=== PATIENT | female | born 1940 | race Caucasian/White ===

== ENCOUNTER 2022-05-23 09:51 | Observation (INO) ==
[2022-05-23] MEDS ORDERED: IOPAMIDOL 100 ML BOTTLE IV ONE (09:52)
--- NOTE | 2022-05-23 10:04 | Emergency Department Note ---
HPI General Chief complaint: Stroke Symptoms Stated complaint: Stroke Symptoms Time Seen by Provider: 05/23/22 10:01 Source: patient and family Mode of arrival: wheelchair Limitations: no limitations History of Present Illness HPI Narrative: 81-year-old female with past medical history of diabetes, hypertension, CKD, and anemia presenting with speech difficulty. Patient's last known normal was 9:15 AM. Daughter left her for a few minutes and when she came back noted that the patient was having trouble speaking clearly and was not making sense when she was trying to talk. Daughter brought her to the emergency department and in triage the patient was noted to have difficulty formulating sentences. By the time she was placed in a room patient was able to answer all questions and speak normally. She denies any headache, vision changes, chest pain, shortness of breath, or nausea. No numbness or weakness in her arms or legs. No prior history of CVA. Not on anticoagulation. No other complaints at this time. Related Data Home Medications Medication Instructions Recorded Confirmed ascorbate calcium (vitamin C) 500 1 g PO Q6H 05/26/20 02/19/22 mg tablet brimonidine 0.1 % eye drops 1 drp ophthalmic (eye) Q8H 05/26/20 02/19/22 (Alphagan P) dorzolamide 22.3 mg-timolol 6.8 1 drp ophthalmic (eye) BID 05/26/20 02/19/22 mg/mL eye drops (Cosopt) evening primrose oil 500 mg capsule 500 mg PO TID 05/26/20 02/19/22 flaxseed oil 1,000 mg capsule 1,000 mg PO QDAY 05/26/20 02/19/22 hydrochlorothiazide 12.5 mg capsule 12.5 mg PO QDAY 05/26/20 02/19/22 latanoprost 0.005 % eye drops 1 drp ophthalmic (eye) QDAY 05/26/20 02/19/22 (Xalatan) losartan 100 mg tablet 100 mg PO QDAY 05/26/20 02/19/22 multivitamin 1 cap PO QDAY 05/26/20 02/19/22 pravastatin 20 mg tablet 20 mg PO QDAY 11/13/21 02/19/22 Allergies Allergy/AdvReac Type Severity Reaction Status Date / Time codeine Allergy Unknown HALLUCINATI Verified 02/19/22 14:17 ONS NSAIDS (Non-Steroidal Allergy Unknown KIDNEY Verified 02/19/22 14:17 Anti-Inflamma FUNCTION Kbkhlon-IOS-FhY Reductase Allergy Unknown MUSCLE PAIN Verified 02/19/22 14:17 Inhibitor [Ntrtqwv-Hju-Xmm Reductase Inhibitor] Review of Systems ROS ROS Narrative: Narrative: Constitutional: Denies fever Eyes: Denies vision change ENT ED: Denies throat pain Cardiovascular: Denies chest pain Respiratory: Denies shortness of breath or cough Gastrointestinal: Denies abdominal pain, nausea or vomiting Genitourinary: Denies dysuria or hematuria Musculoskeletal: Denies back pain Integumentary: Denies rash Neurological: Denies headache, weakness, numbness, paresthesias or dizziness Psychiatric: Denies anxiety Endocrine: Denies fatigue Hematological/Lymphatic: Denies easy bruising PFSH Narrative Patient History Narrative: Narrative: Medical/Surgical/Family History All Active Problems (Updated 05/23/22 @ 12:21 by Luis Angel Gannon MD) Radiculopathy, sacral and sacrococcygeal region (Chronic) Radiculopathy, lumbosacral region (Chronic) Chronic pain (Chronic) Glaucoma (Chronic) Hypertension (Chronic) Low back pain (Chronic) Radiculopathy of lumbar region (Chronic) UPJ (ureteropelvic junction) obstruction (Chronic) Anemia in chronic kidney disease (Chronic) Type 2 diabetes mellitus without complications (Chronic) Vitamin D deficiency, unspecified (Chronic) Hyperlipidemia (Chronic) Impacted cerumen, bilateral (Chronic) Tinnitus, bilateral (Chronic) Rheumatic tricuspid insufficiency (Chronic) Nonrheumatic aortic (valve) insufficiency (Chronic) Endocarditis (Chronic) Asymptomatic varicose veins of unspecified lower extremity (Chronic) Spinal enthesopathy, lumbosacral region (Chronic) Other spondylosis, lumbar region (Chronic) Other enthesopathies, not elsewhere classified (Chronic) Chronic kidney disease, stage 3 (Chronic) Renal osteodystrophy (Chronic) Overactive bladder (Chronic) Mixed incontinence (Chronic) Other specified disorders of breast (Chronic) 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) Hypertensive chronic kidney disease with stage 1 through stage 4 chronic kidney disease, or unspecified chronic kidney disease (Chronic) Pure hypercholesterolemia, unspecified (Chronic) Primary open-angle glaucoma, bilateral, stage unspecified (Chronic) Mixed conductive and sensorineural hearing loss, unilateral, right ear with restricted hearing on the contralateral side (Chronic) Hydronephrosis, left (Acute) Obstruction of left ureteropelvic junction (UPJ) (Acute) TIA (transient ischemic attack) (Acute) Medical History Anemia in chronic kidney disease Asymptomatic varicose veins of unspecified lower extremity Chronic kidney disease, stage 3 Chronic pain Degeneration of lumbar or lumbosacral intervertebral disc Endocarditis Glaucoma Hyperlipidemia Hypertension Hypertensive chronic kidney disease with stage 1 through stage 4 chronic kidney disease, or unspecified chronic kidney disease Impacted cerumen, bilateral Low back pain Mixed conductive and sensorineural hearing loss, unilateral, right ear with restricted hearing on the contralateral side Mixed incontinence Nonrheumatic aortic (valve) insufficiency Nonrheumatic mitral (valve) insufficiency Other enthesopathies, not elsewhere classified Other specified disorders of breast Other spondylosis, lumbar region Overactive bladder Primary open-angle glaucoma, bilateral, stage unspecified Pure hypercholesterolemia, unspecified Radiculopathy of lumbar region Radiculopathy, lumbosacral region Radiculopathy, sacral and sacrococcygeal region Renal osteodystrophy Rheumatic tricuspid insufficiency Spinal enthesopathy, lumbosacral region Tinnitus, bilateral Type 2 diabetes mellitus without complications UPJ (ureteropelvic junction) obstruction Vitamin D deficiency, unspecified Surgical History History of appendectomy (~1946) History of arthroscopy of right knee (~1988) History of bilateral cataract extraction (~1999) History of cardiac cath 1989, 2002, 2004 History of carpal tunnel surgery of right wrist (~2005) History of cholecystectomy (~1976) History of fusion of cervical spine (~1964) History of hysterectomy (~1980) History of incisional hernia repair (~1981) History of pubovaginal sling (~2001) History of right knee surgery (~2018) History of stapedectomy 1974 right ear History of surgery TF NURIA #2 Lt L5-S1 w/o sed 05/23/20 LESI #1 L5-S1 w/o sed 03/15/20 LESI #1 Lt. L5-S1 w/o sed 08/18/2019 TF NURIA #2 Lt S1 w/o sed 10/13/2018 TF NURIA #1 Lt S1 w/o sed 09/03/18 TF NURIA #2 Left S1 w/o sed 06/03/2017 TF NURIA #1 Lt L5-S1 w/o sed 05/15/2017 History of surgery 2001 TVT transvaginal tape; 2004 sling and debridement of left pelvis History of tonsillectomy and adenoidectomy (~1948) History of vein stripping (~1999) Family History Father , 83 Natural with unknown cause Mother , 39 No problems noted. Brother Colon cancer Social History Smoking Status: Never smoker Alcohol Intake Frequency: does not drink Substance Use: does not use Exam Narrative Narrative: Narrative: General Limitations: no limitations General appearance: Present alert and in no apparent distress Head Head: Present atraumatic and normocephalic Eye Eye: Present normal appearance, PERRL, EOMI and visual meléndez intact; Absent scleral icterus, conjunctival injection or nystagmus ENT ENT: Present mucous membranes moist Neck Neck: Present trachea midline Chest Chest: Present symmetric chest wall rise Respiratory Respiratory: Present normal lung sounds bilaterally; Absent respiratory distress, rales/crackles, wheezes, stridor or accessory muscle use Cardiovascular Cardiovascular: Present regular rate and normal rhythm; Absent systolic murmur or diastolic murmur Adbominal Abdominal: Present soft; Absent distention, tenderness, guarding, rebound or rigidity Extremities Extremities: Present normal inspection; Absent pretibial edema Back Back: Present normal inspection; Absent CVA tenderness (R) or CVA tenderness (L) Neurological Neurological: Present alert, oriented X3 and CN II-XII intact; Absent motor sensory deficit Expanded Neurological Patient oriented to: Present person, place and time Speech: Present fluid speech; Absent expressive aphasia or dysarthria CRANIAL NERVES: EOM function (II, III, IV, ): Normal, facial sensation (V): Normal, facial palsy (VII): Normal, gag reflex (IX): Normal, spinal accessory function (XI): Normal and tongue deviation (XII): Normal CEREBELLAR FUNCTION: finger to nose: Normal Motor strength - LUE: 5/5 Motor strength - RUE: 5/5 Motor strength - LLE: 5/5 Motor strength - RLE: 5/5 UPPER MOTOR NEURON EXAM: danielle neglect: Normal SENSORY EXAM UPPER EXTREMITY: Normal: light touch SENSORY EXAM LOWER EXTREMITY: Normal: light touch Coma Scale Eye Opening: Spontaneous Coma Scale Motor Response: Obeys Commands Coma Scale Verbal Response: Oriented Coma Scale Total: 15 Psychiatric Psychiatric: Present normal affect and normal mood Skin Skin: Present warm (WNL) and dry Course Consultations Consultation #1: Dr. Kaplan, hospitalist Time: 12:18 Vital Signs Vital signs: Vital Signs Temperature 97.0 F 05/23/22 09:53 Pulse Rate 105 H 05/23/22 09:53 Respiratory Rate 18 05/23/22 09:53 Blood Pressure 132/91 05/23/22 09:53 Pulse Oximetry (%) 97 05/23/22 09:53 Oxygen Delivery Method 05/23/22 09:53 Temperature 97.0 F 05/23/22 09:53 Pulse Rate 68 05/23/22 11:56 Respiratory Rate 17 05/23/22 11:56 Blood Pressure 131/71 05/23/22 11:56 Pulse Oximetry (%) 100 05/23/22 11:56 Oxygen Delivery Method 05/23/22 09:53 MDM MDM Narrative Medical decision making narrative: 81-year-old female presenting with speech difficulty. On arrival, code stroke was initiated. Vital signs are stable. On my assessment of the patient her symptoms have completely resolved. She has no neurologic deficits on exam and no speech difficulty. NIH stroke scale is 0. CT brain without contrast shows no acute hemorrhage or evidence of acute infarct, per Dr. Alfaro of radiology. EKG shows atrial fibrillation which patient does not appear to have had prev iously. I spoke with Dr. Quiros of telestroke neurology who does not recommend tPA administration which I agree with. He states the patient will likely need admission, aspirin, statin, and MRI. Aspirin 325mg ordered. Labs and CTAs are pending. Labs notable for mild hyponatremia to 130 and creatinine of 1.2. CTA head and neck showed no significant stenosis. Will admit for TIA, patient endorsed to Dr. Kaplan for admission. Lab Data Lab results reviewed: Yes I reviewed the patient's lab results. Result diagrams: 05/23/22 10:00 05/23/22 10:00 Labs: Lab Results 05/23/22 05/23/22 05/23/22 Range/Units 10:00 10:00 10:00 WBC 8.6 (4.5-11.0) K/mcL RBC 3.90 (3.59-5.38) M/mcL Hgb 11.9 (11.2-15.7) g/dL Hct 35.7 (34.1-44.9) % POC Hct (36-48) MCV 91.5 (80.0-100.0) fL MCH 30.5 (26.0-34.0) pg MCHC 33.3 (31.0-36.0) g/dL RDW 13.0 (11.5-14.5) % Plt Count 269 (140-440) K/mcL MPV 9.3 (7.4-10.4) fL Immature Gran % (Auto) 0.3 (0.0-0.5) % Neut % (Auto) 68.5 (38.0-78.0) % Lymph % (Auto) 22.9 (15.5-49.0) % Hart % (Auto) 6.9 (1.0-12.0) % Eos % (Auto) 0.9 (0.0-7.0) % Baso % (Auto) 0.5 (0.0-2.0) % Lymph # (Auto) 1.98 (1.50-4.80) K/mcL Hart # (Auto) 0.60 (0.10-0.90) K/mcL Eos # (Auto) 0.08 (0.00-0.70) K/mcL Baso # (Auto) 0.04 (0.00-0.30) K/mcL Immature Gran # 0.03 (0.00-0.05) K/mcl Absolute Neutrophils 5.94 (1.80-8.00) K/mcL POC PT (11.9-14.5) PT 13.9 (11.9-14.5) sec POC INR (0.8-1.2) INR 1.0 (0.9-1.1) APTT 31.8 (20.0-37.0) sec POC Sodium (133-145) Sodium 130 L (133-145) mmol/L POC Potassium (3.3-5.1) Potassium 4.2 (3.3-5.1) mmol/L POC Chloride (96-108) Chloride 98 (96-108) mmol/L Carbon Dioxide 17 L (22-30) mmol/L POC Total CO2 (22-30) Anion Gap 15.0 (8.0-16.0) POC BUN (6-20) BUN 25 H (8-23) mg/dL Creatinine 1.2 H (0.6-1.1) mg/dL POC Creatinine (0.6-1.2) GFR Calculation 42 Glucose 109 H (70-105) mg/dL POC Glucose (70-105) Calcium 9.4 (8.6-10.4) mg/dL POC WB Ioniz Calcium (1.16-1.32) Total Bilirubin 0.6 (0.1-1.0) mg/dL AST 24 (<32) U/L ALT 15 (<40) U/L Alkaline Phosphatase 82 (39-117) U/L Troponin T (<0.03) ng/mL Total Protein 6.7 (5.9-8.4) gm/dL Albumin 4.1 (3.2-5.2) gm/dL Globulin 2.6 (2.2-3.7) gm/dL Albumin/Globulin Ratio 1.6 (1.0-2.3) Urine Color Urine Appearance (Clear) Urine pH (5.0-9.0) Ur Specific Plummer (1.000-1.035) Urine Protein (Negative) mg/dL Urine Glucose (UA) (Negative) mg/dL Urine Ketones (Negative) mg/dL Urine Occult Blood (Negative) pamela/mcL Urine Nitrate (Negative) Urine Bilirubin (Negative) mg/dL Urine Urobilinogen mg/dL Ur Leukocyte Esterase (Negative) /uL Urine RBC (0-3) /hpf Urine WBC (0-4) /hpf Ur Squamous Epith Cells (0-4) /hpf Ur Transition Epith Cell (0-2) /hpf Urine Bacteria (0) /hpf Urine Yeast (Budding) (None) /hpf Ur Culture Indicated? 05/23/22 05/23/22 05/23/22 Range/Units 10:00 10:02 10:05 WBC (4.5-11.0) K/mcL RBC (3.59-5.38) M/mcL Hgb (11.2-15.7) g/dL Hct (34.1-44.9) % POC Hct 37.0 (36-48) MCV (80.0-100.0) fL MCH (26.0-34.0) pg MCHC (31.0-36.0) g/dL RDW (11.5-14.5) % Plt Count (140-440) K/mcL MPV (7.4-10.4) fL Immature Gran % (Auto) (0.0-0.5) % Neut % (Auto) (38.0-78.0) % Lymph % (Auto) (15.5-49.0) % Hart % (Auto) (1.0-12.0) % Eos % (Auto) (0.0-7.0) % Baso % (Auto) (0.0-2.0) % Lymph # (Auto) (1.50-4.80) K/mcL Hart # (Auto) (0.10-0.90) K/mcL Eos # (Auto) (0.00-0.70) K/mcL Baso # (Auto) (0.00-0.30) K/mcL Immature Gran # (0.00-0.05) K/mcl Absolute Neutrophils (1.80-8.00) K/mcL POC PT 11.7 L (11.9-14.5) PT (11.9-14.5) sec POC INR 1.0 (0.8-1.2) INR (0.9-1.1) APTT (20.0-37.0) sec POC Sodium 132 L (133-145) Sodium (133-145) mmol/L POC Potassium 4.2 (3.3-5.1) Potassium (3.3-5.1) mmol/L POC Chloride 102 (96-108) Chloride (96-108) mmol/L Carbon Dioxide (22-30) mmol/L POC Total CO2 21.0 L (22-30) Anion Gap (8.0-16.0) POC BUN 25 H (6-20) BUN (8-23) mg/dL Creatinine (0.6-1.1) mg/dL POC Creatinine 1.3 H (0.6-1.2) GFR Calculation Glucose (70-105) mg/dL POC Glucose 112 H (70-105) Calcium (8.6-10.4) mg/dL POC WB Ioniz Calcium 1.17 (1.16-1.32) Total Bilirubin (0.1-1.0) mg/dL AST (<32) U/L ALT (<40) U/L Alkaline Phosphatase (39-117) U/L Troponin T < 0.01 (<0.03) ng/mL Total Protein (5.9-8.4) gm/dL Albumin (3.2-5.2) gm/dL Globulin (2.2-3.7) gm/dL Albumin/Globulin Ratio (1.0-2.3) Urine Color Urine Appearance (Clear) Urine pH (5.0-9.0) Ur Specific Plummer (1.000-1.035) Urine Protein (Negative) mg/dL Urine Glucose (UA) (Negative) mg/dL Urine Ketones (Negative) mg/dL Urine Occult Blood (Negative) pamela/mcL Urine Nitrate (Negative) Urine Bilirubin (Negative) mg/dL Urine Urobilinogen mg/dL Ur Leukocyte Esterase (Negative) /uL Urine RBC (0-3) /hpf Urine WBC (0-4) /hpf Ur Squamous Epith Cells (0-4) /hpf Ur Transition Epith Cell (0-2) /hpf Urine Bacteria (0) /hpf Urine Yeast (Budding) (None) /hpf Ur Culture Indicated? 05/23/22 Range/Units 11:17 WBC (4.5-11.0) K/mcL RBC (3.59-5.38) M/mcL Hgb (11.2-15.7) g/dL Hct (34.1-44.9) % POC Hct (36-48) MCV (80.0-100.0) fL MCH (26.0-34.0) pg MCHC (31.0-36.0) g/dL RDW (11.5-14.5) % Plt Count (140-440) K/mcL MPV (7.4-10.4) fL Immature Gran % (Auto) (0.0-0.5) % Neut % (Auto) (38.0-78.0) % Lymph % (Auto) (15.5-49.0) % Hart % (Auto) (1.0-12.0) % Eos % (Auto) (0.0-7.0) % Baso % (Auto) (0.0-2.0) % Lymph # (Auto) (1.50-4.80) K/mcL Hart # (Auto) (0.10-0.90) K/mcL Eos # (Auto) (0.00-0.70) K/mcL Baso # (Auto) (0.00-0.30) K/mcL Immature Gran # (0.00-0.05) K/mcl Absolute Neutrophils (1.80-8.00) K/mcL POC PT (11.9-14.5) PT (11.9-14.5) sec POC INR (0.8-1.2) INR (0.9-1.1) APTT (20.0-37.0) sec POC Sodium (133-145) Sodium (133-145) mmol/L POC Potassium (3.3-5.1) Potassium (3.3-5.1) mmol/L POC Chloride (96-108) Chloride (96-108) mmol/L Carbon Dioxide (22-30) mmol/L POC Total CO2 (22-30) Anion Gap (8.0-16.0) POC BUN (6-20) BUN (8-23) mg/dL Creatinine (0.6-1.1) mg/dL POC Creatinine (0.6-1.2) GFR Calculation Glucose (70-105) mg/dL POC Glucose (70-105) Calcium (8.6-10.4) mg/dL POC WB Ioniz Calcium (1.16-1.32) Total Bilirubin (0.1-1.0) mg/dL AST (<32) U/L ALT (<40) U/L Alkaline Phosphatase (39-117) U/L Troponin T (<0.03) ng/mL Total Protein (5.9-8.4) gm/dL Albumin (3.2-5.2) gm/dL Globulin (2.2-3.7) gm/dL Albumin/Globulin Ratio (1.0-2.3) Urine Color Yellow Urine Appearance Cloudy A (Clear) Urine pH 7.0 (5.0-9.0) Ur Specific Plummer 1.010 (1.000-1.035) Urine Protein Negative (Negative) mg/dL Urine Glucose (UA) Negative (Negative) mg/dL Urine Ketones Negative (Negative) mg/dL Urine Occult Blood Small A (Negative) pamela/mcL Urine Nitrate Negative (Negative) Urine Bilirubin Negative (Negative) mg/dL Urine Urobilinogen Normal mg/dL Ur Leukocyte Esterase Large A (Negative) /uL Urine RBC 3 (0-3) /hpf Urine WBC > 182 H (0-4) /hpf Ur Squamous Epith Cells 1 (0-4) /hpf Ur Transition Epith Cell < 1 (0-2) /hpf Urine Bacteria None (0) /hpf Urine Yeast (Budding) Mod A (None) /hpf Ur Culture Indicated? yes Radiology Data Radiology results reviewed: Yes I reviewed the patient's radiology results. Radiology results narrative: Ordering Physician:Luis Angel Gannon M.D. Date of Service:05/23/22 Procedure(s):CT angio head History: Acute stroke symptoms TECHNIQUE: Following injection of intravenous nonionic contrast the patient was imaged from the aortic arch to the top of the head during arterial phase. Sagittal, coronal, 3-D and curved linear reformatted images were created. The radiation exposure was limited using dose reduction technology. FINDINGS: Neck: The aortic arch is normal in caliber and there few small scattered plaques along the wall. There is no aneurysm or dissection. Great vessels arising from the aorta are normal. The common carotids, carotid bifurcations, internal and external carotid arteries are normal in caliber. There is no plaque formation dissection or thrombosis. The vertebral arteries are normal. The left is dominant. Incidentally noted is a Klippel Feil deformity along which is a segmentation anomaly with fusion between the bodies of C5, C6 and C7. There is disc space narrowing and spur formation at C4-5 and C7-T1. Brain: The vertebral and basilar arteries are normal. Posterior fossa circulation is normal. The petrous and cavernous portions of both internal carotids are normal. The anterior, middle and posterior cerebral arteries are normal in caliber and symmetric. There is no intracranial stenosis, thrombosis or evidence of vasculitis. There is a small patent anterior communicating artery. The posterior communicating arteries are hypoplastic. No aneurysm or vascular malformation are present. There is no enhancing lesion. 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 Date of Service:05/23/22 Procedure(s):CT angio neck History: Acute stroke symptoms TECHNIQUE: Following injection of intravenous nonionic contrast the patient was imaged from the aortic arch to the top of the head during arterial phase. Sagittal, coronal, 3-D and curved linear reformatted images were created. The radiation exposure was limited using dose reduction technology. FINDINGS: Neck: The aortic arch is normal in caliber and there few small scattered plaques along the wall. There is no aneurysm or dissection. Great vessels arising from the aorta are normal. The common carotids, carotid bifurcations, internal and external carotid arteries are normal in caliber. There is no plaque formation dissection or thrombosis. The vertebral arteries are normal. The left is dominant. Incidentally noted is a Klippel Feil deformity along which is a segmentation anomaly with fusion between the bodies of C5, C6 and C7. There is disc space narrowing and spur formation at C4-5 and C7-T1. Brain: The vertebral and basilar arteries are normal. Posterior fossa circulation is normal. The petrous and cavernous portions of both internal carotids are normal. The anterior, middle and posterior cerebral arteries are normal in caliber and symmetric. There is no intracranial stenosis, thrombosis or evidence of vasculitis. There is a small patent anterior communicating artery. The posterior communicating arteries are hypoplastic. No aneurysm or vascular malformation are present. There is no enhancing lesion. 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 and Yes There are no EKG findings of acute coronary syndrome EKG results narrative: Atrial fibrillation at [address] elevation or depression. When compared to previous EKG there are: previous EKG unavailable Discharge Plan Patient/Caregiver Discharge Instructions Pt seen by GUARD ENTRANCE REGISTRAR/PA only: No Clinical Impression: TIA (transient ischemic attack) Patient Disposition: Xfer As Inpt ([facility]) Condition: Fair Follow up with: Estela Sanchez ARNP [Primary Care Provider] - Prescriptions: No Action losartan 100 mg tablet 100 mg PO QDAY hydrochlorothiazide 12.5 mg capsule 12.5 mg PO QDAY dorzolamide-timolol [Cosopt] 22.3-6.8 mg/mL drops 1 drp OPHTHALMIC BID Alphagan P 0.1 % drops 1 drp OPHTHALMIC Q8H latanoprost [Xalatan] 0.005 % drops 1 drp OPHTHALMIC QDAY multivitamin Capsule 1 cap PO QDAY ascorbate calcium (vitamin C) 500 mg tablet 1 g PO Q6H evening primrose oil 500 mg capsule 500 mg PO TID Rx Instructions: give with meal/snack flaxseed oil 1,000 mg capsule 1,000 mg PO QDAY Rx Instructions: administer with a meal pravastatin 20 mg tablet 20 mg PO QDAY
[2022-05-23 10:11] LABS: POC Pro Time 11.7 (11.9-14.5)
[2022-05-23 10:13] LABS: POC Calcium, Ionized 1.17 (1.16-1.32); POC Creatinine 1.3 (0.6-1.2); POC Potassium 4.2 (3.3-5.1)
[2022-05-23] MEDS ORDERED: ASPIRIN 325 MG ENTERIC COATED TABLET PO ONE (10:37)
[2022-05-23 10:48] LABS: Basophils # (Auto) 0.04 K/mcL (0.00-0.30); Basophils % (Auto) 0.5 % (0.0-2.0); Eosinophils # (Auto) 0.08 K/mcL (0.00-0.70); Eosinophils % (Auto) 0.9 % (0.0-7.0); Hematocrit 35.7 % (34.1-44.9); Hemoglobin 11.9 g/dL (11.2-15.7); Lymphocytes # (Auto) 1.98 K/mcL (1.50-4.80); Lymphocytes % (Auto) 22.9 % (15.5-49.0); Mean Cell Volume 91.5 fL (80.0-100.0); Mean Corpuscular HGB Conc 33.3 g/dL (31.0-36.0); Mean Platelet Volume 9.3 fL (7.4-10.4); Monocytes % (Auto) 6.9 % (1.0-12.0); Neutrophils % (Auto) 68.5 % (38.0-78.0); Platelet Count 269 K/mcL (140-440); WBC 8.6 K/mcL (4.5-11.0)
--- NOTE | 2022-05-23 10:50 | Cat Scan Report ---
History: Acute stroke symptoms TECHNIQUE: Following injection of intravenous nonionic contrast the patient was imaged from the aortic arch to the top of the head during arterial phase. Sagittal, coronal, 3-D and curved linear reformatted images were created. The radiation exposure was limited using dose reduction technology. FINDINGS: Neck: The aortic arch is normal in caliber and there few small scattered plaques along the wall. There is no aneurysm or dissection. Great vessels arising from the aorta are normal. The common carotids, carotid bifurcations, internal and external carotid arteries are normal in caliber. There is no plaque formation dissection or thrombosis. The vertebral arteries are normal. The left is dominant. Incidentally noted is a Klippel Feil deformity along which is a segmentation anomaly with fusion between the bodies of C5, C6 and C7. There is disc space narrowing and spur formation at C4-5 and C7-T1. Brain: The vertebral and basilar arteries are normal. Posterior fossa circulation is normal. The petrous and cavernous portions of both internal carotids are normal. The anterior, middle and posterior cerebral arteries are normal in caliber and symmetric. There is no intracranial stenosis, thrombosis or evidence of vasculitis. There is a small patent anterior communicating artery. The posterior communicating arteries are hypoplastic. No aneurysm or vascular malformation are present. There is no enhancing lesion. 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
[2022-05-23] MEDS ORDERED: ASPIRIN 81 MG TAB.CHEW ONE ×2 (10:58→11:00)
[2022-05-23 11:02] LABS: Partial Thromboplastin Time 31.8 sec (20.0-37.0); Prothrombin Time 13.9 sec (11.9-14.5)
[2022-05-23 11:41] LABS: ALT/SGPT 15 U/L (<40); AST/SGOT 24 U/L (<32); Albumin 4.1 gm/dL (3.2-5.2); Albumin/Globulin Ratio 1.6 (1.0-2.3); Alkaline Phosphatase 82 U/L (39-117); Bilirubin,Total 0.6 mg/dL (0.1-1.0); Blood Urea Nitrogen 25 mg/dL (8-23); Calcium 9.4 mg/dL (8.6-10.4); Carbon Dioxide 17 mmol/L (22-30); Chloride 98 mmol/L (96-108); Globulin 2.6 gm/dL (2.2-3.7); Glomerular Filtration Rate 42; Glucose 109 mg/dL (70-105)
[2022-05-23 11:59] LABS: Appearance,Urine Cloudy (Clear); Bilirubin,Urine Negative (Negative); Color,Urine Yellow; Culture Indicated,Urine yes; Glucose,Urine (UA) Negative (Negative); Ketones,Urine Negative (Negative); Leukocyte Esterase,Urine Large /uL (Negative); Nitrate,Urine Negative (Negative); Protein,Urine Negative (Negative); Urine Blood Small ery/mcL (Negative); Urine Budding Yeast MOD /hpf; Urine RBC 3 /hpf (0-3); Urine Squamous Epithelial Cell 1 /hpf (0-4); Urine Transitional Epi Cells < 1 /hpf (0-2); Urine WBC > 182 /hpf (0-4); Urobilinogen,Urine Normal
--- NOTE | 2022-05-23 13:11 | Internal Med History&Physical ---
HPI History of Present Illness Patient information: Note initiated : 05/23/22 at 1:03 pm Service Date, if different from initiated Date: [] Patient: Quiana Downey a 81 y/o F admitted on for Stroke Symptoms. Chief Complaint: [difficulty speaking] Chief complaint: difficulty speaking History of present illness: Ms. Downey is a 81 year old F history of type 2 diabetes, essential hypertensions, mixed dyslipidemia, chronic kidney disease stage III, presenting with acute onset difficulty speaking. There was no prior similar episode. Patient does not have any history of stroke or TIA. At around 930 this morning, when she was moving furniture, she had difficulty speaking without trouble understanding her family. The symptoms last for about an hour even when she was in triage in our ER before it spontaneously resolved. She denies any numbness or tingling or weakness of any of her extremities. She denies any trouble swallowing. She denies any headaches. She denies any confusions. She denies any chest pain, palpitations, or shortness of breath. Vital signs at ED presentations within normal limits. Labs also within normal limits. CT of the head without contrast no acute intracranial pathologies. CTA of the head that the neck did not show any hemodynamically significant stenosis. Admission request was called for complete TIA work-up. Of note, she was found to be in atrial fibrillation, no prior history. Constitutional Constitutional: Absent chills, excessive sweating, fatigue, fever(s) or weakness EENT Eyes: Absent blurry vision, change in vision, loss of vision or other visual disturbances Ears: Absent decreased hearing or tinnitus Nose, mouth and throat: Absent abnormal hearing, dry mouth, headache(s), nasal congestion or sore throat Cardiovascular Cardiovascular: Absent chest pain, chest pain at rest, edema, irregular heart rhythm or palpatations Respiratory Respiratory: Absent cough, dyspnea or wheezing Gastrointestinal Gastrointestinal: Absent abdominal pain, constipation, diarrhea, nausea or vomiting Musculoskeletal Musculoskeletal: Absent back pain, deformity, limited range of motion, muscle cramps, muscle weakness or numbness Integumentary Integumentary: Absent lesions, rash or wounds Neurological Neurological: Present abnormal speech; Absent focal weakness, headache(s) or numbness Psychiatric Psychiatric: Absent anxiety, depression or hallucinations PFSH PFSH All Active Problems (Updated 05/23/22 @ 13:07 by Jemal Kaplan MD) New onset atrial fibrillation (Acute) Radiculopathy, sacral and sacrococcygeal region (Chronic) Radiculopathy, lumbosacral region (Chronic) Chronic pain (Chronic) Glaucoma (Chronic) Hypertension (Chronic) Low back pain (Chronic) Radiculopathy of lumbar region (Chronic) UPJ (ureteropelvic junction) obstruction (Chronic) Anemia in chronic kidney disease (Chronic) Type 2 diabetes mellitus without complications (Chronic) Vitamin D deficiency, unspecified (Chronic) Hyperlipidemia (Chronic) Impacted cerumen, bilateral (Chronic) Tinnitus, bilateral (Chronic) Rheumatic tricuspid insufficiency (Chronic) Nonrheumatic aortic (valve) insufficiency (Chronic) Endocarditis (Chronic) Asymptomatic varicose veins of unspecified lower extremity (Chronic) Spinal enthesopathy, lumbosacral region (Chronic) Other spondylosis, lumbar region (Chronic) Other enthesopathies, not elsewhere classified (Chronic) Chronic kidney disease, stage 3 (Chronic) Renal osteodystrophy (Chronic) Overactive bladder (Chronic) Mixed incontinence (Chronic) Other specified disorders of breast (Chronic) 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) Hypertensive chronic kidney disease with stage 1 through stage 4 chronic kidney disease, or unspecified chronic kidney disease (Chronic) Pure hypercholesterolemia, unspecified (Chronic) Primary open-angle glaucoma, bilateral, stage unspecified (Chronic) Mixed conductive and sensorineural hearing loss, unilateral, right ear with restricted hearing on the contralateral side (Chronic) Hydronephrosis, left (Acute) Obstruction of left ureteropelvic junction (UPJ) (Acute) TIA (transient ischemic attack) (Acute) Medical History Anemia in chronic kidney disease Asymptomatic varicose veins of unspecified lower extremity Chronic kidney disease, stage 3 Chronic pain Degeneration of lumbar or lumbosacral intervertebral disc Endocarditis Glaucoma Hyperlipidemia Hypertension Hypertensive chronic kidney disease with stage 1 through stage 4 chronic kidney disease, or unspecified chronic kidney disease Impacted cerumen, bilateral Low back pain Mixed conductive and sensorineural hearing loss, unilateral, right ear with restricted hearing on the contralateral side Mixed incontinence Nonrheumatic aortic (valve) insufficiency Nonrheumatic mitral (valve) insufficiency Other enthesopathies, not elsewhere classified Other specified disorders of breast Other spondylosis, lumbar region Overactive bladder Primary open-angle glaucoma, bilateral, stage unspecified Pure hypercholesterolemia, unspecified Radiculopathy of lumbar region Radiculopathy, lumbosacral region Radiculopathy, sacral and sacrococcygeal region Renal osteodystrophy Rheumatic tricuspid insufficiency Spinal enthesopathy, lumbosacral region Tinnitus, bilateral Type 2 diabetes mellitus without complications UPJ (ureteropelvic junction) obstruction Vitamin D deficiency, unspecified Surgical History History of appendectomy (~1945) History of arthroscopy of right knee (~1988) History of bilateral cataract extraction (~1999) History of cardiac cath 1989, 2002, 2004 History of carpal tunnel surgery of right wrist (~2005) History of cholecystectomy (~1976) History of fusion of cervical spine (~1964) History of hysterectomy (~1980) History of incisional hernia repair (~1981) History of pubovaginal sling (~2001) History of right knee surgery (~2018) History of stapedectomy 1974 right ear History of surgery TF NURIA #2 Lt L5-S1 w/o sed 05/23/20 LESI #1 L5-S1 w/o sed 03/15/20 LESI #1 Lt. L5-S1 w/o sed 08/18/2019 TF NURIA #2 Lt S1 w/o sed 10/13/2018 TF NURIA #1 Lt S1 w/o sed 09/03/18 TF NURIA #2 Left S1 w/o sed 06/03/2017 TF NURIA #1 Lt L5-S1 w/o sed 05/15/2017 History of surgery 2001 TVT transvaginal tape; 2004 sling and debridement of left pelvis History of tonsillectomy and adenoidectomy (~194) History of vein stripping (~1999) Family History Father , 83 Natural with unknown cause Mother , 39 No problems noted. Brother Colon cancer Social History marital status: occupational status: retired frequency: 3-4 times per week smoking status: Never smoker alcohol intake frequency: does not drink substance use type: does not use MEDS/ALLERGIES Home Medications and Allergies Home Medications Medication Instructions Recorded Confirmed Type ascorbate calcium (vitamin C) 500 1 g PO Q6H 05/26/20 02/19/22 History mg tablet brimonidine 0.1 % eye drops 1 drp ophthalmic (eye) Q8H 05/26/20 02/19/22 History (Alphagan P) dorzolamide 22.3 mg-timolol 6.8 1 drp ophthalmic (eye) BID 05/26/20 02/19/22 History mg/mL eye drops (Cosopt) evening primrose oil 500 mg capsule 500 mg PO TID 05/26/20 02/19/22 History flaxseed oil 1,000 mg capsule 1,000 mg PO QDAY 05/26/20 02/19/22 History hydrochlorothiazide 12.5 mg capsule 12.5 mg PO QDAY 05/26/20 02/19/22 History latanoprost 0.005 % eye drops 1 drp ophthalmic (eye) QDAY 05/26/20 02/19/22 History (Xalatan) losartan 100 mg tablet 100 mg PO QDAY 05/26/20 02/19/22 History multivitamin 1 cap PO QDAY 05/26/20 02/19/22 History pravastatin 20 mg tablet 20 mg PO QDAY 11/13/21 02/19/22 History Allergies Allergy/AdvReac Type Severity Reaction Status Date / Time codeine Allergy Unknown HALLUCINATI Verified 02/19/22 14:17 ONS NSAIDS (Non-Steroidal Allergy Unknown KIDNEY Verified 02/19/22 14:17 Anti-Inflamma FUNCTION [id number] Reductase Allergy Unknown MUSCLE PAIN Verified 02/19/22 14:17 Inhibitor [Irdczme-Euz-Mvs Reductase Inhibitor] EXAM Constitutional Vitals: Temp Pulse Resp BP Pulse Ox O2 Del Method 36.1 C 68 13 136/74 98 05/23/22 09:53 05/23/22 12:30 05/23/22 12:30 05/23/22 12:30 05/23/22 12:30 05/23/22 09:53 General appearance: cooperative and no acute distress Head Head exam: Present atraumatic and normocephalic Eye Eye exam: Present EOMI and PERRL ENT ENT exam: Present mucous membranes moist, normal exam and normal external ear exam Neck Neck exam: Present normal inspection; Absent lymphadenopathy, tenderness or thyromegaly Respiratory Respiratory exam: Absent accessory muscle use, respiratory distress or wheezes Cardiovascular Cardiovascular exam: Present irregular rhythm; Absent JVD GI/Abdominal GI/Abdominal exam: Present normal bowel sounds and soft; Absent organomegaly or tenderness Extremities Exam Extremities exam: Present full ROM, normal capillary refill and normal inspection; Absent tenderness Neurological Exam Neurological exam: Present alert, CN II-XII intact and oriented X3; Absent motor sensory deficit Psychiatric Psychiatric exam: Present normal affect and normal mood; Absent anxious or depressed Skin Skin exam: Present dry and intact DATA Data Completed and Pending Labs: Labs from last 24 hours 05/23/22 05/23/22 05/23/22 11:17 10:05 10:02 WBC RBC Hgb Hct POC Hct 37.0 MCV MCH MCHC RDW Plt Count MPV Immature Gran % (Auto) Neut % (Auto) Lymph % (Auto) Moore % (Auto) Eos % (Auto) Baso % (Auto) Lymph # (Auto) Moore # (Auto) Eos # (Auto) Baso # (Auto) Immature Gran # Absolute Neutrophils POC PT 11.7 L PT POC INR 1.0 INR APTT POC Sodium 132 L Sodium POC Potassium 4.2 Potassium POC Chloride 102 Chloride Carbon Dioxide POC Total CO2 21.0 L Anion Gap POC BUN 25 H BUN Creatinine POC Creatinine 1.3 H GFR Calculation Glucose POC Glucose 112 H Calcium POC WB Ioniz Calcium 1.17 Total Bilirubin AST ALT Alkaline Phosphatase Troponin T Total Protein Albumin Globulin Albumin/Globulin Ratio Urine Color Yellow Urine Appearance Cloudy A Urine pH 7.0 Ur Specific [place] 1.010 Urine Protein Negative Urine Glucose (UA) Negative Urine Ketones Negative Urine Occult Blood Small A Urine Nitrate Negative Urine Bilirubin Negative Urine Urobilinogen Normal Ur Leukocyte Esterase Large A Urine RBC 3 Urine WBC > 182 H Ur Squamous Epith Cells 1 Ur Transition Epith Cell < 1 Urine Bacteria None Urine Yeast (Budding) Mod A Ur Culture Indicated? yes 05/23/22 05/23/22 05/23/22 10:00 10:00 10:00 WBC RBC Hgb Hct POC Hct MCV MCH MCHC RDW Plt Count MPV Immature Gran % (Auto) Neut % (Auto) Lymph % (Auto) Moore % (Auto) Eos % (Auto) Baso % (Auto) Lymph # (Auto) Moore # (Auto) Eos # (Auto) Baso # (Auto) Immature Gran # Absolute Neutrophils POC PT PT 13.9 POC INR INR 1.0 APTT 31.8 POC Sodium Sodium 130 L POC Potassium Potassium 4.2 POC Chloride Chloride 98 Carbon Dioxide 17 L POC Total CO2 Anion Gap 15.0 POC BUN BUN 25 H Creatinine 1.2 H POC Creatinine GFR Calculation 42 Glucose 109 H POC Glucose Calcium 9.4 POC WB Ioniz Calcium Total Bilirubin 0.6 AST 24 ALT 15 Alkaline Phosphatase 82 Troponin T < 0.01 Total Protein 6.7 Albumin 4.1 Globulin 2.6 Albumin/Globulin Ratio 1.6 Urine Color Urine Appearance Urine pH Ur Specific [place] Urine Protein Urine Glucose (UA) Urine Ketones Urine Occult Blood Urine Nitrate Urine Bilirubin Urine Urobilinogen Ur Leukocyte Esterase Urine RBC Urine WBC Ur Squamous Epith Cells Ur Transition Epith Cell Urine Bacteria Urine Yeast (Budding) Ur Culture Indicated? 05/23/22 10:00 WBC 8.6 RBC 3.90 Hgb 11.9 Hct 35.7 POC Hct MCV 91.5 MCH 30.5 MCHC 33.3 RDW 13.0 Plt Count 269 MPV 9.3 Immature Gran % (Auto) 0.3 Neut % (Auto) 68.5 Lymph % (Auto) 22.9 Moore % (Auto) 6.9 Eos % (Auto) 0.9 Baso % (Auto) 0.5 Lymph # (Auto) 1.98 Moore # (Auto) 0.60 Eos # (Auto) 0.08 Baso # (Auto) 0.04 Immature Gran # 0.03 Absolute Neutrophils 5.94 POC PT PT POC INR INR APTT POC Sodium Sodium POC Potassium Potassium POC Chloride Chloride Carbon Dioxide POC Total CO2 Anion Gap POC BUN BUN Creatinine POC Creatinine GFR Calculation Glucose POC Glucose Calcium POC WB Ioniz Calcium Total Bilirubin AST ALT Alkaline Phosphatase Troponin T Total Protein Albumin Globulin Albumin/Globulin Ratio Urine Color Urine Appearance Urine pH Ur Specific [place] Urine Protein Urine Glucose (UA) Urine Ketones Urine Occult Blood Urine Nitrate Urine Bilirubin Urine Urobilinogen Ur Leukocyte Esterase Urine RBC Urine WBC Ur Squamous Epith Cells Ur Transition Epith Cell Urine Bacteria Urine Yeast (Budding) Ur Culture Indicated? A/P Assessment and plan (1) Type 2 diabetes mellitus without complications: Status: Chronic (2) Hyperlipidemia: Status: Chronic (3) Chronic kidney disease, stage 3: Status: Chronic (4) TIA (transient ischemic attack): Status: Acute (5) Hypertension: Status: Chronic (6) New onset atrial fibrillation: Status: Acute Narrative A/P Narrative: Assessment and Plans: 1. TIA with expressive aphasia: Observation med surg telemetry MRI brain stroke protocol 2D echocardiogram NPO while awaiting SLT swallowing evaluation Physical therapy Lipid panel HgA1c Aspirin Eliquis Lipitor 2. New onset atrial fibrillation: [id number] score of 7, will start patient on Eliquis Rate controlled without medications 2D echocardiogram 3. Essential HTN: Losartan HCTZ 4. Mixed dyslipidemia: Lipid panel Lipitor 5. Chronic kidney disease III: Avoid nephrotoxic agents Serum Cr level at baseline, saline lock 6. T2DM: HgA1c Hold any oral hypoglycemics SSI AC HS Accu Chek AC HS Hypoglycemia protocol NPO while awaiting SLT swallowing evaluation GI ppx: not currently indicated DVT ppx: Eliquis Code status: Full Prognosis: stable Disposition: observation med surg telemetry Time Spent With Patient Time: Total time spent is greater than 50% in coordination of care (as documented) at patient's floor/unit and/or counseling patient: Total time spent with greater than 50% in coordination of care (as documented) at patient's floor/unit and/or counseling patient:: 50 - 70 minutes QUALITY Stroke Symptom Onset Unknown: No
[2022-05-23] MEDS ORDERED: IPRATROPIUM/ALBUTEROL 3 ML AMPUL.NEB NEB PRN (13:16)
[2022-05-23] MEDS ORDERED: DEXTROSE 31 GM ORAL.SUSP PO PRN (13:16)
[2022-05-23] MEDS ORDERED: DEXTROSE 50% 50 ML VIAL IV PRN (13:16)
[2022-05-23] MEDS ORDERED: METOPROLOL TARTRATE 5 MG/5 ML VIAL IV PRN (13:16)
[2022-05-23] MEDS ORDERED: ONDANSETRON 4 MG/2 ML VIAL IV PRN (13:16)
[2022-05-23] MEDS ORDERED: traZODone HCL 50 MG TABLET PO PRN (13:16)
[2022-05-23] MEDS ORDERED: ACETAMINOPHEN 325 MG TABLET PO PRN (13:16)
[2022-05-23] MEDS ORDERED: Brimonidine [Alphagan P] 0.1 % drops OP SCH (13:30)
[2022-05-23] MEDS ORDERED: oxyCODONE/APAP 5/325MG TABLET PO PRN (13:51)
[2022-05-23] MEDS: ASCORBIC ACID 500 MG TABLET PO SCH ×2 (14:29→20:33)
[2022-05-23] MEDS: EVENING PRIMROSE OIL 500 MG PO SCH ×2 (14:29→20:37)
[2022-05-23] MEDS: 0.9 % SODIUM CHLORIDE 10 ML SYRINGE IV SCH ×2 (14:29→20:47)
--- NOTE | 2022-05-23 15:06 | Magnetic Resonance Report ---
History: Transient ischemic attack with difficulty speaking TECHNIQUE: Stroke protocol was performed using multiple pulse sequences. FINDINGS: The diffusion sequence shows no acute infarct. There is no hemorrhage or mass. T2 FLAIR sequences reveal the presence of several small scattered white matter lesions in the centrum semiovale in the frontal and parietal lobes bilaterally. There are two small old cortical infarcts within deep sulci in both parietal lobes. The one on the right side is seen on series 5 image 17 and measures 3 x 6 mm. The left parietal lobe infarct is also located within a deep sulcus and measures 4 x 4 mm. This is seen on series 5 image 16. There is mild generalized atrophy. The ventricles are normal in size. No abnormal extra-axial fluid collection is present. IMPRESSION: No acute infarct or hemorrhage. 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
[2022-05-23] MEDS: BRIMONIDINE 0.2% OU SCH ×2 (15:08→20:32)
[2022-05-23] MEDS: INSULIN LISPRO 1 UNIT/0.01 ML UNIT SQ SCH ×2 (17:03→20:46)
[2022-05-23] MEDS: LATANOPROST OPHTH DROPS 2.5ML BOTTLE OU SCH (20:32)
[2022-05-23] MEDS: Dorzolamide-Timolol [Cosopt] 22.3-6.8 mg/mL drops OP SCH (20:32)
[2022-05-23] MEDS: APIXABAN 5 MG TABLET PO SCH ×2 (20:36→21:11)
[2022-05-23] MEDS: DOCUSATE SODIUM 100 MG CAPSULE PO SCH (20:36)
[2022-05-23] MEDS ORDERED: LATANOPROST OPHTH DROPS 2.5ML BOTTLE OU SCH (21:00)
[2022-05-23] MEDS ORDERED: BRIMONIDINE OPHTH DROPS 1 GTT BOTTLE 5ML OU SCH (21:00)
[2022-05-23] MEDS ORDERED: DORZOLAMIDE TIMOLOL OPHTHALMIC SCH (21:00)
[2022-05-23] MEDS ORDERED: PRAVASTATIN 20 MG TABLET PO SCH (21:00)
[2022-05-23] MEDS ORDERED: SENNOSIDES 1 TABLET PO SCH (21:00)
[2022-05-24] MEDS: ASCORBIC ACID 500 MG TABLET PO SCH ×3 (01:18→12:21)
[2022-05-24] MEDS: 0.9 % SODIUM CHLORIDE 10 ML SYRINGE IV SCH (05:47)
[2022-05-24] MEDS: BRIMONIDINE 0.2% OU SCH ×3 (05:47→08:38)
[2022-05-24] MEDS: Dorzolamide-Timolol [Cosopt] 22.3-6.8 mg/mL drops OP SCH ×2 (05:55→07:11)
[2022-05-24] MEDS: DOCUSATE SODIUM 100 MG CAPSULE PO SCH (07:09)
[2022-05-24] MEDS: EVENING PRIMROSE OIL 500 MG PO SCH (07:10)
[2022-05-24] MEDS: INSULIN LISPRO 1 UNIT/0.01 ML UNIT SQ SCH ×2 (07:14→11:22)
[2022-05-24] MEDS: APIXABAN 5 MG TABLET PO SCH (08:35)
[2022-05-24] MEDS: LATANOPROST OPHTH DROPS 2.5ML BOTTLE OU SCH (08:39)
[2022-05-24] MEDS ORDERED: MULTIVIT,THER IRON,CA,FA & MIN 1 TABLET PO SCH (09:00)
[2022-05-24] MEDS ORDERED: NON FORMULARY MEDICATION 1 DOSE MISCELL (Losartan-Hydrochlorothiazide 100-12.5 mg tablet) PO SCH (09:00)
[2022-05-24] MEDS ORDERED: HYDROCHLOROTHIAZIDE 12.5 MG CAPSULE PO SCH ×2 (09:00)
[2022-05-24] MEDS ORDERED: ATORVASTATIN 40 MG TABLET PO SCH (09:00)
[2022-05-24] MEDS ORDERED: ASPIRIN 81 MG TAB.CHEW CHEWED SCH (09:00)
[2022-05-24] MEDS ORDERED: LOSARTAN 50 MG TABLET PO SCH ×2 (09:00)
--- NOTE | 2022-05-24 11:50 | Discharge Summary ---
Discharge Provider Provider IMPORTANT FOLLOW-UP INFORMATION FOR PCP: Patient information: Note initiated : 05/24/22 at 11:46 am Service Date, if different from initiated Date: [] Patient: Quiana Downey 81 y/o F admitted on 05/23/22 for Stroke Symptoms. Chief Complaint: [] Date of admission: 05/23/22 13:11 Discharge date: 05/24/22 Primary care physician: Estela Sanchez Attending physician on admission: Jemal Kaplan Consults: 05/23/22 Consult to Physician [CONS] Stat Comment: Consulting Provider: Jemal Kaplan Reason For Exam: Physician to Consult Attending physician on discharge: Jemal Kaplan COURSE Hospital Course Hospital course: Ms. Downey is a 81 year old F history of type 2 diabetes, essential hypertensions, mixed dyslipidemia, chronic kidney disease stage III, presenting with acute onset difficulty speaking. There was no prior similar episode. Patient does not have any history of stroke or TIA. At around 930 this morning, when she was moving furniture, she had difficulty speaking without trouble understanding her family. The symptoms last for about an hour even when she was in triage in our ER before it spontaneously resolved. She denies any numbness or tingling or weakness of any of her extremities. She denies any trouble swallowing. She denies any headaches. She denies any confusions. She denies any chest pain, palpitations, or shortness of breath. Vital signs at ED presentations within normal limits. Labs also within normal limits. CT of the head without contrast no acute intracranial pathologies. CTA of the head that the neck did not show any hemodynamically significant stenosis. Admission request was called for complete TIA work-up. Of note, she was found to be in atrial fibrillation, no prior history. 05/24: MRI brain no acute intracranial pathologies. Echocardiogram performed, results pending. Reached clinical stability, decision made to discharge home with Rx i isabelluding Xarelto sent to pharmacy. 2 week PCP follow up appointment made for her. All questions were answered prior to patient being physically discharged. Discharge diagnosis: TIA Time Spent with Patient Time attestation: Total time spent providing and/or coordinating discharge services: Time spent: Less than 30 minutes EXAM Constitutional Vitals: Temp Pulse Resp BP Pulse Ox O2 Del Method O2 Flow Rate 36.3 C 79 18 106/66 99 0 05/24/22 11:30 05/24/22 03:36 05/24/22 11:30 05/24/22 11:30 05/24/22 11:30 05/23/22 20:00 05/24/22 03:36 General appearance: cooperative and no acute distress Head Head exam: Present atraumatic and normocephalic Eye Eye exam: Present EOMI and PERRL ENT ENT exam: Present mucous membranes moist, normal exam and normal external ear exam Neck Neck exam: Present normal inspection; Absent lymphadenopathy, tenderness or thyromegaly Respiratory Respiratory exam: Absent accessory muscle use, respiratory distress or wheezes Cardiovascular Cardiovascular exam: Present irregular rhythm; Absent JVD GI/Abdominal GI/Abdominal exam: Present normal bowel sounds and soft; Absent organomegaly or tenderness Extremities Exam Extremities exam: Present full ROM, normal capillary refill and normal inspection; Absent tenderness Neurological Exam Neurological exam: Present alert, CN II-XII intact and oriented X3; Absent motor sensory deficit Psychiatric Psychiatric exam: Present normal affect and normal mood; Absent anxious or depressed Skin Skin exam: Present dry and intact Discharge Data Data Completed and Pending Labs on day of discharge: Labs from last 24 hours 05/23/22 11:17 Urine Color Yellow Urine Appearance Cloudy A Urine pH 7.0 Ur Specific [place] 1.010 Urine Protein Negative Urine Glucose (UA) Negative Urine Ketones Negative Urine Occult Blood Small A Urine Nitrate Negative Urine Bilirubin Negative Urine Urobilinogen Normal Ur Leukocyte Esterase Large A Urine RBC 3 Urine WBC > 182 H Ur Squamous Epith Cells 1 Ur Transition Epith Cell < 1 Urine Bacteria None Urine Yeast (Budding) Mod A Ur Culture Indicated? yes Discharge Plan Patient/Caregiver Discharge Instructions Activity: increase activity as tolerated Diet: Consistent Carbohydrate Instructions: Transient Ischemic Attack (GEN), A-fib (Atrial Fibrillation) (GEN) Prescriptions: New pravastatin 20 mg Tablet 80 mg PO QHS Qty: 30 0RF Xarelto 20 mg tablet 20 mg PO QDAY Qty: 30 0RF Rx Instructions: must administer with evening meal Continued multivitamin Capsule 1 cap PO QDAY evening primrose oil 500 mg capsule 1,000 mg PO DAILY Rx Instructions: give with meal/snack flaxseed oil 1,000 mg capsule 1,000 mg PO QDAY Rx Instructions: administer with a meal brimonidine 0.2 % drops 1 drp ophthalmic (eye) BID Rx Instructions: Right Eye dorzolamide-timolol 22.3-6.8 mg/mL drops 1 drp OPHTHALMIC (EYE) BID Rx Instructions: Both eyes latanoprost 0.005 % drops 1 drp OPHTHALMIC (EYE) HS Rx Instructions: Both eyes losartan-hydrochlorothiazide 100-12.5 mg tablet 1 tab PO QAM cinnamon bark [Cinnamon] 500 mg Capsule 1,000 mg PO QDAY Discontinued pravastatin 20 mg tablet 20 mg PO QHS Follow Up Plan Follow up with: Estela Sanchez ARNP [Primary Care Provider] - 05/30/22 9:45 am (Please arrive 15 minutes early) Patient Disposition: Home, Self-Care Prognosis: Fair Rehab Potential: Good I certify that the patient requires SNF services: No Overall status at discharge: patient is back to baseline Discharge Orders: Discharge Order (Routine); Ordered 05/24/22 Ordered By: Jemal BORGES VTE Deep Vein Thrombosis/Pulmonary Embolism Present on Admission: No
--- NOTE | 2022-05-24 13:57 | EKG ---
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
--- NOTE | 2022-06-02 14:49 | Cat Scan Report ---
History: Acute stroke symptoms TECHNIQUE: The brain was imaged without contrast in axial plane at 2.5 mm intervals. Sagittal and coronal reformats were created. The radiation exposure was limited using dose reduction technology. FINDINGS: There is no intracranial hemorrhage. Mild generalized atrophy is present, most apparent in the frontal lobes and around the sylvian fissures. No infarct is detected. There is subtle white matter disease with vague areas of decreased attenuation in the centrum semiovale, most apparent in the left parietal lobe. Ventricles are normal in size. There is no abnormal extra-axial fluid collection. Calcified plaques are present in the cavernous portions of both internal carotids and the left vertebral artery at the foramen magnum. IMPRESSION: Age-related degenerative changes and no evidence of acute infarct or hemorrhage Dr. Gannon was called with the report Interpreted and Authenticated by: Gilbert Alfaro 05/23/22
== END 2022-05-24 13:30 | disposition home or self-care (01) ==
LOC: ED 09:51 → ICU 13:11 → INTOOBSV 13:11
PROVIDERS: ADMIT Internal Medicine; ATTEND Internal Medicine